=== PATIENT | female | born 1995 | race Caucasian/White ===

== ENCOUNTER 2023-07-22 14:11 | Emergency (ER) | payer OTHER ==
[2023-07-22 14:53] VITALS: TEMP 98.1; BMI 31.5
[2023-07-22] MEDS ORDERED: ACETAMINOPHEN 1000 MG/100 ML BAG IVPB ONE (15:29)
[2023-07-22] MEDS ORDERED: FAMOTIDINE 20 MG/50 ML IVPB 20 MG/50 ML MG IVPB ONE ×2 (15:29→16:28)
[2023-07-22] MEDS ORDERED: SODIUM CHLORIDE 0.9% 500 ML INFUS.BAG IV ONE (15:29)
[2023-07-22] MEDS ORDERED: ONDANSETRON 4 MG/2 ML VIAL IVPB ONE (15:29)
[2023-07-22] MEDS ORDERED: ACETAMINOPHEN INJECTION 100 ML IVPB ONE (16:27)
[2023-07-22] MEDS ORDERED: ONDANSETRON 4 MG/2 ML VIAL ONE (16:28)
[2023-07-22 17:11] LABS: BASO % 0.2 % (0-2.0); EOS % 0.5 % (0-4.5); HEMATOCRIT 31.2 % (32.4-45.2); HEMOGLOBIN 10.4 GM/dL (10.7-15.3); LYMPH % 15.8 % (8-40); MCH 30.5 pg (25.7-33.7); MCHC 33.3 g/dl (32.0-36.0); MEAN CELL VOLUME 91.7 fl (80-96); MEAN PLT VOLUME 7.1 fl (7.5-11.1); NEUT % 76.5 % (42.8-82.8); PLATELET COUNT 253 10^3/uL (134-434); RDW 13.5 % (11.6-15.6); WHITE BLOOD COUNT 8.9 K/mm3 (4.0-10.0)
[2023-07-22 17:35] LABS: POTASSIUM 4.4 mmol/L (3.5-5.1)
[2023-07-22 17:36] LABS: URINE APPEARANCE CLEAR; URINE BILIRUBIN NEGATIVE (NEGATIVE); URINE COLOR YELLOW; URINE GLUCOSE (UA) NEGATIVE (NEGATIVE); URINE KETONE NEGATIVE (NEGATIVE); URINE LEUK ESTERASE NEGATIVE (NEGATIVE); URINE NITRITE NEGATIVE (NEGATIVE); URINE PROTEIN NEGATIVE (NEGATIVE); URINE UROBILINOGEN 0.2 mg/dL (0.2-1.0)
[2023-07-22 17:37] LABS: ALBUMIN 2.7 g/dl (3.4-5.0); BLOOD UREA NITROGEN 7.8 mg/dL (7-18); CALCIUM 8.4 mg/dL (8.5-10.1)
[2023-07-22 17:40] LABS: CREATININE 0.5 mg/dL (0.55-1.3)
[2023-07-22 17:42] LABS: BILIRUBIN,TOTAL 0.3 mg/dL (0.2-1); TOT PROT 6.9 g/dl (6.4-8.2)
[2023-07-22 18:06] VITALS: BP 97/55; PULSE 82; RESP 20
== END 2023-07-22 19:09 | disposition home or self-care (01) ==
LOC: JER 14:11
PROC: 3E033GC Introduction of Other Therapeutic Substance into Peripheral Vein, Percutaneous Approach (ICD-10-PCS; principal; 2023-07-22)
PROC: 3E033NZ Introduction of Analgesics, Hypnotics, Sedatives into Peripheral Vein, Percutaneous Approach (ICD-10-PCS; 2023-07-22)
PROC: 3E033GC Introduction of Other Therapeutic Substance into Peripheral Vein, Percutaneous Approach (ICD-10-PCS; 2023-07-22)
DX: O21.0 Mild hyperemesis gravidarum (principal); O26.893 Other specified pregnancy related conditions, third trimester; R11.0 Nausea; R35.0 Frequency of micturition; R42 Dizziness and giddiness; R63.0 Anorexia; Z3A.30 30 weeks gestation of pregnancy
CPT/HCPCS: 36415; 80053; 81003; 83690; 85025; 87086; 99284-25

== ENCOUNTER 2023-08-30 03:55 | Inpatient (IN) | payer OTHER ==
[2023-08-30] MEDS ORDERED: LACTATED RINGERS SOLUTION 1,000 ML IV SCH (05:00)
[2023-08-30] MEDS ORDERED: LIDO 2%/EPI 1:200000 PRESRVFRE (20 ML SDVIAL) ONE (07:42)
[2023-08-30] MEDS ORDERED: BUPIVACAINE HCL/PF 0.25% (2.5MG/ML) 10 ML VIAL ONE (07:42)
[2023-08-30] MEDS ORDERED: PENICILLIN G POTASSIUM 5,000,000 UNIT/250 ML BAG IVPB ONE ×2 (07:45→08:22)
[2023-08-30] MEDS ORDERED: FENTANYL/BUPIVACAINE/NS/PF - PCEA - 50 ML DISP.SYRIN EP ONE (07:48)
[2023-08-30] MEDS ORDERED: PENICILLIN G POTASSIUM 20,000,000 (20Mm) UNITS VIAL IVPB ONE (07:49)
[2023-08-30] MEDS ORDERED: NALOXONE HCL 0.4 MG/ML VIAL IVPUSH PRN (07:51)
[2023-08-30] MEDS ORDERED: LACTATED RINGERS SOLUTION 1,000 ML/1,000 ML INFUS.BAG IV SCH (08:00)
[2023-08-30] MEDS ORDERED: FENTANYL/BUPIVACAINE/NS/PF - PCEA - 50 ML DISP.SYRIN EP SCH (08:00)
[2023-08-30 08:53] VITALS: BMI 34.0
[2023-08-30] MEDS ORDERED: OXYTOCIN 20 UNITS in 0.9% NS 20 UNIT/1,000 ML INFUS.BAG IV ONE ×2 (09:35→14:30)
[2023-08-30 11:23] LABS: BASO % 0.3 % (0-2.0); HEMATOCRIT 31.1 % (32.4-45.2); HEMOGLOBIN 10.3 GM/dL (10.7-15.3); LYMPH % 7.7 % (8-40); MCH 29.5 pg (25.7-33.7); MEAN CELL VOLUME 89.5 fl (80-96); MEAN PLT VOLUME 7.1 fl (7.5-11.1); MONO % 3.6 % (3.8-10.2); NEUT % 88.4 % (42.8-82.8); PLATELET COUNT 239 10^3/uL (134-434); RBC 3.47 M/mm3 (3.60-5.2); RDW 14.5 % (11.6-15.6); WHITE BLOOD COUNT 10.3 K/mm3 (4.0-10.0)
[2023-08-30 11:30] LABS: INR 1.03 (0.83-1.09); PROTHROMBIN TIME (PATIENT) 11.9 SEC (9.7-13.0)
[2023-08-30 11:33] LABS: ACTIVATED PTT 22.5 SECONDS (25.2-36.5)
[2023-08-30] MEDS ORDERED: PENICILLIN G POTASSIUM 2,500,000 UNIT in SODIUM CHLORIDE 100 ML IVPB SCH (11:45)
[2023-08-30 12:00] LABS: POTASSIUM 5.1 mmol/L (3.5-5.1)
[2023-08-30] MEDS ORDERED: PENICILLIN G POTASSIUM 20,000,000 (20Mm) UNITS VIAL IVPB SCH (12:00)
[2023-08-30 12:04] LABS: CALCIUM 8.3 mg/dL (8.5-10.1)
[2023-08-30 12:08] LABS: CREATININE 0.6 mg/dL (0.55-1.3)
[2023-08-30 12:41] LABS: CORD BASE EXCESS -8.8 mmol/L (0-2); CORD HCO3 21.2 mmHg (20-29); CORD PCO2 62.7 mmHg (30-78); CORD pH 7.146 (7.14-7.44)
[2023-08-30 12:44] LABS: CORD BASE EXCESS -6.8 mmol/L (0-2); CORD HCO3 18.2 mmHg (20-29); CORD PCO2 35.2 mmHg (30-78); CORD pH 7.331 (7.14-7.44)
[2023-08-30] MEDS ORDERED: BENZOCAINE 28 GM HEMORRHOIDAL OINTMENT TP PRN (13:57)
[2023-08-30] MEDS ORDERED: WITCH HAZEL 50% (TUCKS) 40 PAD/JAR PAD TP PRN (13:57)
[2023-08-30] MEDS ORDERED: BISACODYL 10 MG SUPP.RECT RC PRN (13:57)
[2023-08-30] MEDS ORDERED: METHYLERGONOVINE MALEATE 0.2 MG/1 ML AMP IM PRN (13:57)
[2023-08-30] MEDS ORDERED: ACETAMINOPHEN 325 MG TABLET (FP) PO PRN (13:57)
[2023-08-30] MEDS ORDERED: BENZOCAINE 20% 57 GM BOTTLE TP PRN (13:57)
[2023-08-30] MEDS ORDERED: OXYTOCIN 20 UNITS in 0.9% NS 20 UNIT/1,000 ML INFUS.BAG IV SCH (14:00)
[2023-08-30] MEDS: IBUPROFEN 600 MG TABLET (FP) PO PRN (15:27)
[2023-08-31 09:28] LABS: BASO % 0.3 % (0-2.0); EOS % 0.5 % (0-4.5); HEMATOCRIT 27.1 % (32.4-45.2); HEMOGLOBIN 9.1 GM/dL (10.7-15.3); LYMPH % 16.3 % (8-40); MCH 29.7 pg (25.7-33.7); MCHC 33.6 g/dl (32.0-36.0); MEAN CELL VOLUME 88.5 fl (80-96); MEAN PLT VOLUME 7.4 fl (7.5-11.1); MONO % 5.3 % (3.8-10.2); NEUT % 77.6 % (42.8-82.8); PLATELET COUNT 192 10^3/uL (134-434); RBC 3.06 M/mm3 (3.60-5.2); RDW 14.5 % (11.6-15.6); WHITE BLOOD COUNT 12.1 K/mm3 (4.0-10.0)
[2023-08-31] MEDS: IBUPROFEN 600 MG TABLET (FP) PO PRN (21:25)
[2023-08-31] MEDS ORDERED: SENNOSIDES/DOCUSATE COMBO (SENNA PLUS) TABLET (UD) PO PRN (22:00)
[2023-09-01 10:12] VITALS: BP 111/74; PULSE 94; RESP 16; TEMP 98
== END 2023-09-01 14:00 | disposition home or self-care (01) | DRG 560 ==
LOC: JDEL 03:55 → JLDR 07:25 → J3W 15:00
PROVIDERS: ADMIT Obstetrics & Gynecology; ATTEND Obstetrics & Gynecology
PROC: 10E0XZZ Delivery of Products of Conception, External Approach (ICD-10-PCS; principal; 2023-08-30)
DX: O60.14X0 Preterm labor third trimester with preterm delivery third trimester, not applicable or unspecified (principal); Z3A.36 36 weeks gestation of pregnancy; Z37.0 Single live birth
CPT/HCPCS: 36415; 36600; 80048; 82803; 85025; 85610; 85730; 86780; 86850; 86900; 86901

== ENCOUNTER 2024-07-05 12:13 | Emergency (ER) | payer OTHER ==
[2024-07-05 12:51] VITALS: BP 107/78; PULSE 98; RESP 18; TEMP 98.8; BMI 27.6
[2024-07-05] MEDS ORDERED: ACETAMINOPHEN 325 MG TABLET (FP) ONE (16:15)
[2024-07-05] MEDS: ACETAMINOPHEN 325 MG TABLET (FP) PO ONE (16:24)
== END 2024-07-05 17:17 | disposition home or self-care (01) ==
LOC: JER 12:13
DX: R07.89 Other chest pain (principal); Z20.822 Contact with and (suspected) exposure to COVID-19
CPT/HCPCS: 0241U-QW; 71045-TC-FY; 93005; 93010; 99285-25

== ENCOUNTER 2024-10-09 08:41 | Emergency (ER) | payer OTHER ==
[2024-10-09 08:50] VITALS: BP 107/67; PULSE 94; RESP 18; TEMP 98.3; BMI 31.8
[2024-10-09] MEDS ORDERED: ACETAMINOPHEN 500 MG TABLET (FP) ONE (10:22)
[2024-10-09] MEDS ORDERED: guaiFENesin/D-METHORPHAN HB 10 ML UNIT-DOSE CUPS ONE (10:24)
[2024-10-09] MEDS: guaiFENesin/D-METHORPHAN HB 10 ML UNIT-DOSE CUPS PO ONE (10:26)
[2024-10-09] MEDS: ACETAMINOPHEN 500 MG TABLET (FP) PO ONE (10:26)
[2024-10-09 10:57] LABS: THROAT:GRP A STREP NOT DETECTED (NOTDETECTED)
== END 2024-10-09 11:41 | disposition home or self-care (01) ==
LOC: JERFT 08:41
DX: J10.1 Influenza due to other identified influenza virus with other respiratory manifestations (principal); R05.9 Cough, unspecified; R51.9 Headache, unspecified; M79.10 Myalgia, unspecified site; R09.89 Other specified symptoms and signs involving the circulatory and respiratory systems; Z20.822 Contact with and (suspected) exposure to COVID-19
CPT/HCPCS: 0241U-QW; 87651; 99283-25

== ENCOUNTER 2025-01-07 15:27 | Emergency (ER) | payer OTHER ==
[2025-01-07 15:42] VITALS: BP 102/68; PULSE 90; RESP 16; TEMP 98.2; BMI 32.0
[2025-01-07] MEDS ORDERED: IBUPROFEN 400 MG TABLET (FP) PO ONE (16:45)
[2025-01-07] MEDS ORDERED: ACETAMINOPHEN 500 MG TABLET (FP) ONE (16:45)
[2025-01-07] MEDS ORDERED: ONDANSETRON *ODT* 4 MG TABLET ONE (16:45)
[2025-01-07] MEDS ORDERED: PSEUDOEPHEDRINE HCL 60 MG TABLET ONE (16:47)
[2025-01-07] MEDS: IBUPROFEN 400 MG TABLET (FP) PO ONE (16:53)
[2025-01-07] MEDS: ACETAMINOPHEN 500 MG TABLET (FP) PO ONE (16:54)
[2025-01-07] MEDS: PSEUDOEPHEDRINE HCL 60 MG TABLET PO ONE (16:54)
[2025-01-07] MEDS: ONDANSETRON *ODT* 4 MG TABLET SL ONE (16:54)
== END 2025-01-07 17:42 | disposition home or self-care (01) ==
LOC: JER 15:27
DX: G43.909 Migraine, unspecified, not intractable, without status migrainosus (principal)
CPT/HCPCS: 99283-25; Q0162